=== PATIENT | female | born 1965 | race Caucasian/White ===

== ENCOUNTER → 2018-12-05 | Outpatient (CLI) | payer OTHER ==
[2018-12-05 15:59] LABS: THYROID STIMULATING HORMONE 0.028 uIU/mL (0.465-4.680)
== END ==
LOC: COL.LAB 14:40
PROVIDERS: Internal Medicine Endocrinology, Diabetes & Metabolism
DX: E03.9 Hypothyroidism, unspecified (principal)

== ENCOUNTER → 2019-02-07 | Outpatient (CLI) | payer OTHER ==
[2019-02-07 17:29] LABS: THYROID STIMULATING HORMONE 1.97 uIU/mL (0.465-4.680)
== END ==
LOC: COL.LAB 15:32
PROVIDERS: Internal Medicine Endocrinology, Diabetes & Metabolism
DX: E03.9 Hypothyroidism, unspecified (principal)

== ENCOUNTER 2023-03-06 21:37 | Inpatient (IN) | payer OTHER ==
[~2023-03-06] VITALS: Ht 157.5 cm; Wt 85.5 kg
[2023-03-06 23:04] VITALS: BP 150/67; PULSE 71; TEMP 98.3
[2023-03-06 23:58] LABS: ALBUMIN 3.2 gm/dL (3.5-5.0); CALCIUM 8.8 mg/dL (8.4-10.2); CREATININE, serum 3.96 mg/dL (0.57-1.11); MAGNESIUM 1.8 mg/dL (1.6-2.6); PHOSPHOROUS 5.3 mg/dL (2.3-4.7); POTASSIUM 4.3 mmol/L (3.5-4.5)
[2023-03-07] VITALS (10 sets, daily range): BP systolic 131–150; BP diastolic 56–72; PULSE 65–74; TEMP 97.6–98.1
[2023-03-07] MEDS ORDERED: AMOXICILLIN 8751 TAB PO (02:16)
[2023-03-07] MEDS ORDERED: VOLTAREN GEL 1%1 TU TOP (02:19)
[2023-03-07] MEDS ORDERED: TIROSINT150 MC1 PO (02:20)
[2023-03-07] MEDS ORDERED: MOBIC15 MG PO (02:21)
[2023-03-07] MEDS ORDERED: MAXZIDE-25MG TA1 TAB PO (02:22)
[2023-03-07] MEDS ORDERED: TOPROL XL 25MG25 MG PO (02:24)
[2023-03-07] MEDS ORDERED: GLUCOPHAGE500 MG/TAB PO (02:24)
[2023-03-07] MEDS ORDERED: CLARITIN 1010 MG/TAB PO (02:25)
[2023-03-07] MEDS ORDERED: COZAAR100 MG PO (02:26)
[2023-03-07 06:44] LABS: BASO # 0.1 K/mm3 (0.0-0.2); BASO % 0.9 % (0.0-2.0); EOS # 0.7 K/mm3 (0.0-0.7); EOS % 9.1 % (0.0-4.0); GRAN # 3.4 K/mm3 (1.4-6.5); HEMOGLOBIN 11.6 g/dl (12.5-16.0); LYMPH # 2.5 K/mm3 (1.2-3.4); LYMPH % 33.9 % (20.0-51.0); MEAN CELL VOLUME 84 fl (80.0-100.0); MEAN CORPUSCULAR HEMOGLOBIN 30 pg (27-31); MEAN CORPUSCULAR HGB CONC 36 g/dl (33.0-37.0); MEAN PLATELET VOLUME 10.3 fl (7.4-10.4); MONO # 0.7 K/mm3 (0.1-0.6); MONO % 8.9 % (1.7-9.3); PLATELET COUNT 196 K/mm3 (130-400); RED BLOOD COUNT 3.91 M/mm3 (4.10-5.30)
[2023-03-07 06:45] LABS: HEMATOCRIT 32.7 % (37.0-47.0)
[2023-03-07 06:54] LABS: CALCIUM 8.4 mg/dL (8.4-10.2); CREATININE, serum 4.01 mg/dL (0.57-1.11)
--- NOTE | 2023-03-07 08:46 | NUR ---
Patient resting in bed. attempting to eat toast, but reports nausea. Zofran given for nausea. She also reports a headache, tylenol PRN given. We discussed strict I&O due to her kidney function, she verbalized understanding. Gi sample sent to lab by Jorge. Will monitor
--- NOTE | 2023-03-07 09:15 | NUR ---
JUJU met with the patient to discuss discharge plan. The patient lives in [place] with her , Darell (ph#[phone]). She reports independence with ADLs and does not have any DME. The patient's PCP is Dr. Borjas at [facility] and she obtains her medications at [facility]. The patient does not have a DPOA-HC, but she was interested in obtaining a form. JUJU provided. The patient plans to return home with her upon discharge. No additional needs at this time. *Discharge plan: home with *
--- NOTE | 2023-03-07 09:21 | NUR ---
Initial visit; Patient thanked Scale Mechanic for looking in on her and offering God's blessings though patient declined spiritual care. Scale Mechanic joked with her about her funny shirt and wished her well.
[2023-03-07 13:30] LABS: MUCOUS Present (NOT PRESENT); SQUAMOUS EPITHELIAL 0-2 /hpf (0-10); URINE BACTERIA None Seen /hpf (NONE SEEN); URINE RBC 0-2 /hpf (0-2); URINE WBC 0-2 /hpf (0-2)
[2023-03-07 13:38] LABS: URINE APPEARANCE Clear (CLEAR/HAZY); URINE BLOOD TRACE-LYSED (NEGATIVE); URINE COLOR Yellow (YELLOW); URINE GLUCOSE Negative (NEGATIVE); URINE KETONE Negative (NEGATIVE); URINE NITRATE Negative (NEGATIVE); URINE PROTEIN(semi-quant) Negative (NEGATIVE); URINE UROBILINOGEN 0.2 E.U/dL (0.2-1.0)
[2023-03-07 13:39] LABS: COLLECTION METHOD CLEAN CATCH
[2023-03-07 17:42] LABS: CREATININE, serum 3.84 mg/dL (0.57-1.11)
[2023-03-07 17:46] LABS: FRACTIONAL EXCRETION OF NA+ 2.26 %
--- NOTE | 2023-03-07 19:34 | NUR ---
Patient resting in bed with minimal complaints today. Nausea improved as the day progressed. She tolerated lunch and dinner. Ivf as ordered. Labs collected as ordered. Shruthi espinal. Report to harry
--- NOTE | 2023-03-07 22:31 | NUR ---
PT. STATED THAT SHE WAS STILL HAVING SOME NAUSEA WHEN I WENT IN TO CHECK ON HER, I LET HER KNOW THAT I COULD GET HER A DOSE OF IV ZOFRAN TO HELP WITH THE NAUSEA, AFTER GIVING HERTHE DOSE I INFORMED HER THAT IT WOULD TAKE BETWEEN 15-20 MIN TO KICK IN, AND THAT I WOULD CHECK ON HER IN A LITTLE BIT TO SEE IF IT HAD BEEN EFFECTIVE, BUT THAT IF SHE WAS STILL HAVING NAUSEA AT THAT TIME I COULD CHECK WITH THE SEWING MACHINE OPERATOR [employer] ANYA TO SEE ABOUT ORDERING A DIFFERENT TYPE OF NAUSEA MEDICINE, THAT WAY WE WOULD BE ABLE TO ALTERNATE NAUSEA MEDS, DESPITE NAUSEA PT. STATES SHE HASN'T BEEN ABLE TO THROW UP, WILL CONTINUE TO MONITOR.
[2023-03-08] VITALS (12 sets, daily range): BP systolic 129–154; BP diastolic 59–80; PULSE 65–81; TEMP 97.8–98.4
[2023-03-08 14:05] LABS: CALCIUM 8.4 mg/dL (8.4-10.2); CREATININE, serum 3.54 mg/dL (0.57-1.11); POTASSIUM 4.3 mmol/L (3.5-4.5)
--- NOTE | 2023-03-08 14:29 | NUR ---
PATIENT ALERT AND ORIENTED X4. VSS. PATIENT HERE FOR ERNST/PNA/N/V. PATIENT DENIES ANY PAIN AT THIS TIME. IV TO RIGHT AC WITH NS RUNNING AT 125ML/HOUR. PATIENT IN BED WITH CALL LIGHT NEAR.
[2023-03-08 15:10] LABS: BASO # 0.1 K/mm3 (0.0-0.2); EOS # 0.4 K/mm3 (0.0-0.7); EOS % 6.4 % (0.0-4.0); GRAN % 47.8 % (42.2-75.2); HEMOGLOBIN 10.7 g/dl (12.5-16.0); LYMPH # 2.2 K/mm3 (1.2-3.4); LYMPH % 35.2 % (20.0-51.0); MEAN CELL VOLUME 84 fl (80.0-100.0); MEAN CORPUSCULAR HEMOGLOBIN 29 pg (27-31); MEAN CORPUSCULAR HGB CONC 34 g/dl (33.0-37.0); MEAN PLATELET VOLUME 10.4 fl (7.4-10.4); MONO # 0.5 K/mm3 (0.1-0.6); MONO % 8.5 % (1.7-9.3); PLATELET COUNT 173 K/mm3 (130-400); RED BLOOD COUNT 3.69 M/mm3 (4.10-5.30); REDCELL DISTRIBUTION WIDTH-CV 12.2 % (11.5-14.5)
[2023-03-08 15:58] LABS: HEMATOCRIT 31.1 % (37.0-47.0)
[2023-03-09] VITALS (10 sets, daily range): BP systolic 136–177; BP diastolic 60–82; PULSE 69–78; TEMP 97.8–98.1
--- NOTE | 2023-03-09 04:45 | NUR ---
03/08 2212 PT. RESTING COMFORTABLY IN BED, ASKED HER IF ANYONE HAD EXPLAINED TO HER WHY HER HOME MEDICATIONS WERE ON HOLD, INFORMED HER ABOUT METFORMIN, AND KIDNEY FUNCTION, AND THAT THEY ARE MOST LIKELY HOLDING THAT AND HER OTHER HOME MEDS WILE WE ARE WAITING FOR HER KIDNEY LABS TO CONTINUE TO TREND DOWNWARD, PT. STATED UNDERSTANDING, WILL CONTINUE TO MONITOR.
--- NOTE | 2023-03-09 11:52 | NUR ---
PATIENT ALERT AND ORIENTED X4. VSS. PATIENT HERE FOR ERNST/PNA/N/V. PATIENT DENIES ANY PAIN, N/V. IV TO RIGHT AC WITH NS RUNNING AT 100ML/HOUR. LUNGS CTA. PATIENT ON ROOM AIR. PATIENT EATING/DRINKING AND VOIDING WITHOUT ISSUES. CALL LIGHT IN REACH .
[2023-03-09 11:55] LABS: HEMOGLOBIN 11.4 g/dl (12.5-16.0); MEAN CELL VOLUME 85 fl (80.0-100.0); MEAN CORPUSCULAR HEMOGLOBIN 29 pg (27-31); MEAN CORPUSCULAR HGB CONC 34 g/dl (33.0-37.0); MEAN PLATELET VOLUME 10.7 fl (7.4-10.4); PLATELET COUNT 193 K/mm3 (130-400); RED BLOOD COUNT 3.92 M/mm3 (4.10-5.30); REDCELL DISTRIBUTION WIDTH-CV 12.2 % (11.5-14.5)
[2023-03-09 11:57] LABS: HEMATOCRIT 33.4 % (37.0-47.0)
[2023-03-09 13:21] LABS: EOSINOPHIL 2 % (0-4); LYMPHOCYTE 29 % (20.0-51.0); NEUTROPHILS 65 % (42.0-75.2); PLATELET ESTIMATE NORMAL (NORMAL)
[2023-03-09 13:25] LABS: CREATININE, serum 2.57 mg/dL (0.57-1.11); POTASSIUM 4.3 mmol/L (3.5-4.5)
[2023-03-09 13:26] LABS: CALCIUM 8.7 mg/dL (8.4-10.2)
--- NOTE | 2023-03-09 21:00 | NUR ---
PT SITTING UP IN RECLINER. VISITING WITH FRIEND. DENIES COUGH, PAIN OR DISTRESS. CALL LIGHT IN REACH.
[2023-03-10] VITALS: BP_SYST 137
[2023-03-10 03:45] VITALS: BP 136/70; PULSE 70; TEMP 98
[2023-03-10 04:58] VITALS: BP_SYST 136
--- NOTE | 2023-03-10 05:48 | NUR ---
PT AWAKE. LAB HERE. PT HAS NO COMPLAINTS AT THIS TIME. CALL LIGHT INREACH.
[2023-03-10 07:14] LABS: HEMOGLOBIN 10.6 g/dl (12.5-16.0); MEAN CELL VOLUME 84 fl (80.0-100.0); MEAN CORPUSCULAR HEMOGLOBIN 29 pg (27-31); MEAN CORPUSCULAR HGB CONC 34 g/dl (33.0-37.0); MEAN PLATELET VOLUME 10.5 fl (7.4-10.4); PLATELET COUNT 202 K/mm3 (130-400); RED BLOOD COUNT 3.67 M/mm3 (4.10-5.30); REDCELL DISTRIBUTION WIDTH-CV 12.1 % (11.5-14.5)
[2023-03-10 07:18] LABS: HEMATOCRIT 30.9 % (37.0-47.0)
[2023-03-10 07:20] VITALS: BP 184/73; PULSE 74; TEMP 98.4
[2023-03-10 07:31] LABS: CALCIUM 8.8 mg/dL (8.4-10.2); CREATININE, serum 2.01 mg/dL (0.57-1.11)
[2023-03-10 07:52] LABS: BAND 6 % (0-10); BASOPHIL 1 % (0-2); EOSINOPHIL 13 % (0-4); LYMPHOCYTE 25 % (20.0-51.0); NEUTROPHILS 49 % (42.0-75.2); PLATELET ESTIMATE NORMAL (NORMAL)
[2023-03-10] MEDS ORDERED: NORVASC 10MG10 MG PO (08:21)
[2023-03-10 08:30] VITALS: BP_SYST 184
--- NOTE | 2023-03-10 08:30 | NUR ---
Pt. sitting up in bed. Pt. is a&OX3, assessment complete. INT to rt. ac patent. Pt. denies pain or other needs, call light within reach.
[2023-03-10] MEDS ORDERED: ZOFRAN ODT4 MG PO (08:48)
--- NOTE | 2023-03-10 11:00 | NUR ---
Pt. has med discharge criteria. INT discontinued from Rt. ac. Gave and reviewed discharge paperwork with the pt. Pt. voices understanding. Pt. escorted out by this nurse.
== END 2023-03-10 11:00 | disposition home or self-care (01) | DRG 683 ==
LOC: MEDICAL 21:37 → SURG 22:49
PROVIDERS: Registered Nurse; Student in an Organized Health Care Education/Training Program; ADMIT Internal Medicine
DX: N17.0 Acute kidney failure with tubular necrosis (principal); E87.1 Hypo-osmolality and hyponatremia; E83.39 Other disorders of phosphorus metabolism; E78.5 Hyperlipidemia, unspecified; E66.9 Obesity, unspecified; I10 Essential (primary) hypertension; T39.395A Adverse effect of other nonsteroidal anti-inflammatory drugs [NSAID], initial encounter; E11.9 Type 2 diabetes mellitus without complications; E86.1 Hypovolemia; T39.315A Adverse effect of propionic acid derivatives, initial encounter; E03.9 Hypothyroidism, unspecified; Z87.01 Personal history of pneumonia (recurrent); Z79.890 Hormone replacement therapy; Z68.32 Body mass index [BMI] 32.0-32.9, adult
CPT/HCPCS: G0379; J1644; J2405; J7030